=== PATIENT | male | born 1965 | race Caucasian/White ===

== ENCOUNTER → 2017-07-02 13:57 | Outpatient (CLI) | payer BC, SELFPAY ==
[2017-06-29 15:18] VITALS: BP 140/74; BMI 27.0
== END ==
PROVIDERS: Family Provider Family Medicine; PCP Family Medicine; Visit Provider Internal Medicine Cardiovascular Disease
DX: I49.3 Ventricular premature depolarization (principal)
CPT/HCPCS: 93225; 93226

== ENCOUNTER → 2017-07-16 12:45 | Outpatient (CLI) | payer BC, SELFPAY ==
[2017-06-29 15:18] VITALS: BP 140/74; BMI 27.0
--- NOTE | 2017-07-16 12:47 | ECHOD_ITS ---
Reason For Study: arrythmia Procedure This was a 2D Doppler, Color Flow transthoracic echocardiogram. The exam was of fair technical quality due to body habitus. The study was technically difficult. Exam performed in department. Left Ventricle Normal LV size. Left ventricular systolic function is normal. The estimated ejection fraction is 60 %. No evidence for diastolic dysfunction. No regional wall motion abnormalities noted. Right Ventricle Normal RV size. Normal systolic function. Atria Normal left atrium. Normal right atrium. No doppler evidence for ASD. Mitral Valve There is no mitral annular calcification. Mild diffuse mitral valve thickening. Equivocal mitral valve prolapse. Trivial mitral valve insufficiency. Tricuspid Valve Normal tricuspid valve. Trivial tricuspid valve insufficiency. Right ventricular systolic pressure estimated to be 26 mmHg. Aortic Valve Trisinus/trileaflet aortic valve. Mild diffuse aortic valve thickening. Mild focal aortic valve calcification. Trivial aortic valve insufficiency. Pulmonic Valve The pulmonic valve is not well visualized. Great Vessels Normal sized aortic root. Pericardium/Pleural No pericardial effusion. MMode/2D Measurements & Calculations LVIDd: 5.2 cm IVSd: 0.96 cm Ao root diam: 2.7 cm LVIDs: 3.2 cm LVPWd: 0.96 cm RVDd: 3.5 cm FS: 38.1 % LAV(MOD-bp): 50.1 ml LA A4 area: 16.4 cm2 RA A4 area: 13.9 cm2 LAV(MOD-bp) Indexed: 22.8 ml/m2 LAV(MOD-sp2): 52.8 ml LAV(MOD-sp4): 42.2 ml Doppler Measurements & Calculations MV E max mike: 71.6 cm/sec Lat Peak E' Mike: 7.9 cm/sec Med Peak E' Mike: 8.5 cm/sec MV A max mike: 55.0 cm/sec E/E' lat: 9.0 E/E' med: 8.5 MV E/A: 1.3 Ao V2 max: 145.3 cm/sec AI max mike: 455.0 cm/sec LV V1 max: 91.5 cm/sec Ao max P.5 mmHg AI max P.8 mmHg LV V1 max P.3 mmHg AI dec slope: 104.7 cm/sec2 AI P1/2t: 1273 msec PA V2 max: 153.2 cm/sec TR max mike: 240.1 cm/sec TR max P.1 mmHg Interpretation Summary The study was technically difficult. Left ventricular systolic function is normal. The estimated ejection fraction is 60 %. Mild diffuse mitral valve thickening. Equivocal mitral valve prolapse. Trivial mitral valve insufficiency. Trivial tricuspid valve insufficiency. Mild diffuse aortic valve thickening. Mild focal aortic valve calcification. Trivial aortic valve insufficiency. Right ventricular systolic pressure estimated to be 26 mmHg. No evidence for diastolic dysfunction. Ordering Physician: Rodney Maciel Referring Physician: Margie Ramirez M.D. Performed By: Jessika Spencer, TARSHA, RVT
== END ==
PROVIDERS: Family Provider Family Medicine; PCP Family Medicine; Visit Provider Internal Medicine Cardiovascular Disease
DX: I49.3 Ventricular premature depolarization (principal)
CPT/HCPCS: 93306

== ENCOUNTER 2019-02-04 01:54 | Inpatient (IN) | payer OTHER, SELFPAY ==
[2019-02-04] VITALS (8 sets, daily range): BP systolic 115–172; BP diastolic 76–104; PULSE 56–83; RESP 16–24; TEMP 36.6–37; O2SAT 97–100; BMI 27.0; BMI 27.1; BMI 26.4; BMI 26.5
--- NOTE | 2019-02-04 02:07 | CT_ITS ---
STUDY: CT ABDOMEN AND PELVIS WITHOUT CONTRAST REASON FOR EXAM: Male, 53 years old. Mid abdominal pain RADIATION DOSAGE (If Supplied By Facility): CTDIvol = ( 8.15 ) mGy, DLP = ( 456.23 ) mGycm TECHNIQUE: Transaxial images were obtained from the dome of the diaphragm to the symphysis pubis without oral contrast, and without intravenous contrast. Sagittal and coronal images were reconstructed. Individualized dose optimization techniques were used for this CT. COMPARISON: None. FINDINGS: Mild bibasilar dependent atelectasis. The visualized portions of the heart are within normal limits. Hypoattenuated lobulated lesion in the right lateral hepatic dome measuring near water density. Mild gallbladder distention. No pericholecystic inflammation. No biliary duct dilatation. Normal spleen. There is mild peripancreatic inflammatory stranding. Normal bilateral adrenal glands. Normal right kidney. Normal left kidney. Normal bilateral ureters. Normal visualized stomach. Normal small intestine. Normal colon. Appendix is not definitively visualized. Normal abdominal aorta. Normal inferior vena cava. Normal retroperitoneum. Normal urinary bladder. Normal abdominal wall. Normal osseous structures. CT/Abdomen/Pelvis without Cont IMPRESSION: 1. Acute pancreatitis without evidence of pseudocyst formation. 2. Complex cyst versus hemangioma within the right lateral hepatic dome. Electronically Signed: Suleiman Melendez MD at 3:22 EDT Tel , Service support ,
--- NOTE | 2019-02-04 02:07 | ED.VIS.GEN ---
History of Present Illness Chief Complaint: Abd Pain Narrative: This patient is a 53-year-old male who presents with abdominal pain. This began acutely about 30 minutes before presentation and was still present on arrival here but had actually resolved a couple of minutes later at the time of my evaluation. His pain was sharp in nature severe and located periumbilically. He denies any fevers nausea vomiting diarrhea or urinary symptoms. He is otherwise recently been well. No history of prior similar symptoms. Patient currently has a tremor but no other complaints. Past Medical History - Allergies and Home Meds Allergies/Adverse Reactions: Allergies No Known Allergies Allergy (Verified 12/31/17 15:29) Primary Care Physician: Margie Ramirez MD [Primary Care Provider] - Past Medical History: None Surgical History: no surgical history Smoking Status: Never smoker Review of Systems All systems negative except as indicated General: Denies: Fever Cardiovascular: Denies: Chest pain Respiratory: Denies: Dyspnea Gastrointestinal: Reports: Abdominal pain. Denies: Nausea, Vomiting, Diarrhea Genitourinary: Denies: Dysuria Physical Exam Vital Signs/Narrative: Vital Signs Temp Pulse Resp BP Pulse Ox 02/04/19 02:06 80 16 145/91 H 100 02/04/19 01:55 97.8 F 83 24 H 157/104 H 97 General: Well nourished, Well developed Head: Normocephalic Eyes: EOMI ENT: Moist mucous membranes Neck: Supple Cardiovascular: Regular rate, Regular rhythm Respiratory: No distress, CTA bilaterally Abdomen: Soft, Nontender, Nondistended, Hyperactive bowel sounds Skin: Normal color Neurological: Alert, - - Tremulous Psychological: - - Anxious Diagnostic/Tx/Re-eval Impressions Abdomen/Pelvis CT 02/04/19 02:07 IMPRESSION: 1. Acute pancreatitis without evidence of pseudocyst formation. 2. Complex cyst versus hemangioma within the right lateral hepatic dome. Electronically Signed: Suleiman Melendez MD at 3:22 EDT Tel , Service support , 02/04/19 02:07 Abdomen/Pelvis without Cont [CT] Stat Laboratory Results 02/04/19 02/04/19 02/04/19 01:55 01:55 02:30 WBC 10.4 RBC 4.75 Hgb 14.9 Hct 43.5 MCV 91.6 MCH 31.4 MCHC 34.3 RDW Std Deviation 44.7 H RDW Coeff of Nikolas 13.1 Plt Count 207 MPV 10.8 Immature Gran % (Auto) 0.200 Neut % (Auto) 43.3 L Lymph % (Auto) 40.7 [place] % (Auto) 11.8 H Eos % (Auto) 3.5 Baso % (Auto) 0.5 Absolute Neuts (auto) 4.5 Absolute Lymphs (auto) 4.22 Nucleated RBC % 0 Sodium 143 Potassium 3.5 Chloride 109 H Carbon Dioxide 27.0 Anion Gap 7 BUN 19 H Creatinine 1.13 Estim Creat Clear Calc 88.28 Est GFR (MDRD) Af Amer 86 Est GFR (MDRD) Non-Af 71 BUN/Creatinine Ratio 16.8 Glucose 116 H Calcium 8.3 L Total Bilirubin 0.50 AST 44 H ALT 37 Alkaline Phosphatase 53 Total Protein 7.4 Albumin 3.8 Globulin 3.6 Albumin/Globulin Ratio 1.1 Lipase 5867 H Urine Color Yellow Urine Clarity Sl. Cloudy Urine pH 6.5 Ur Specific [place] 1.015 Urine Protein Negative Urine Glucose (UA) Normal Urine Ketones Negative Urine Occult Blood Negative Urine Nitrite Negative Urine Bilirubin Negative Urine Urobilinogen Normal Ur Leukocyte Esterase Negative Urine RBC 0 SEEN Urine WBC 0 SEEN Ur Squamous Epith Cells 0-5 SEEN Urine Bacteria RARE Urine Mucus 0 SEEN - Medical Decision Making Labs notable for lipase of 5867. CT was obtained which does show findings consistent with acute pancreatitis. The etiology is unclear. He denies alcohol use. He is not on any daily medications that should cause this. There were no obvious gallstones on his CT scan. I have added on triglycerides. Although his symptoms are well controlled given the unclear cause and severity of the elevation of his lipase a do feel he should be monitored in the hospital and undergo further work-up. He will be treated with IV fluids. Patient discussed with hospitalist and admitted. ED Disposition - Plan for ED Patient: Disposition: Acute Care [facility] Diagnosis: Pancreatitis Referrals: Margie Ramirez MD [Primary Care Provider] -
[2019-02-04 02:13] LABS: Absolute Lymphocyte Count 4.22 X10^3/uL (0.83-4.51); Absolute Neutrophil Count 4.5 X10^3/uL (2.0-7.7); Basophil# 0.05 X10^3/uL; Basophil% 0.5 % (0-1); Eosinophil# 0.36 X10^3/uL; Eosinophils% 3.5 % (0-5); Hematocrit 43.5 % (40-54); Hemoglobin 14.9 g/dL (13.0-16.5); Lymphocyte # 4.22 X10^3/ul (4.0); Lymphocyte % 40.7 % (19-41); Mean Corp Hgb Conc 34.3 g/dL (32-36); Mean Corpuscular Hgb 31.4 pg (27.0-32.0); Mean Corpuscular Volume 91.6 fL (80-94); Mean Platelet Vol. 10.8 fl (6.2-12.0); Monocyte# 1.23 X10^3/uL; Monocyte% 11.8 % (0-10); NRBC Flagged by Analyzer 0 % (0-5); Neutrophil % 43.3 % (47-70); Platelet Count 207 K/mm3 (150-450); RBC Distribution Width CV 13.1 % (11.6-14.6); RBC Distribution Width SD 44.7 fl (35.1-43.9); Red Blood Count 4.75 M/mm3 (4.6-6.2); White Blood Count 10.4 K/mm3 (4.4-11.0)
[2019-02-04 02:38] LABS: ALB/GLOB Ratio 1.1 RATIO (0.9-2.4); AST(SGOT) 44 U/L (15-37); Alanine Aminotransfer ALT/SGPT 37 U/L (16-61); Albumin, Serum 3.8 g/dL (3.2-5.0); Alkaline Phosphatase 53 U/L (45-117); Anion Gap 7 (5-15); BUN 19 mg/dL (7-18); BUN/Creat Ratio 16.8 RATIO (10-20); Calcium,Total 8.3 mg/dL (8.5-10.1); Chloride 109 mmol/L (98-107); Creatinine, Serum 1.13 mg/dL (0.70-1.30); EST Glomerular Filtration Rate 71 mL/min (>60); Est Glom Filt Rate - Afr Amer 86 mL/min (>60); Estimated Creatinine Clearance 88.28 ml/min; Globulin 3.6 g/dL (2.2-4.2); Glucose 116 mg/dL (74-106); Lipase 5867 U/L (73-393); Potassium 3.5 mmol/L (3.5-5.1); Protein, Total 7.4 g/dL (6.4-8.2); Sodium Level 143 mmol/L (136-145)
[2019-02-04 02:40] LABS: Mucous, Urine 0 SEEN /hpf (<or=2+); Red Blood Cells-Urine 0 SEEN /hpf (0-5); White Blood Cells 0 SEEN /hpf (0-5)
[2019-02-04 02:41] LABS: Color, Urine Yellow (Yellow); Glucose, Dipstick Normal (Normal); Ketone-Dipstick Negative (Negative); Leukocyte Esterase-Dipstick Negative /ul (Negative); Nitrite-Dipstick Negative (Negative); Occult Blood-Urine Negative /ul (Negative); Protein-Dipstick Negative (Negative); Specific Gravity, Urine 1.015 (1.002-1.030); Urine Bilirubin Dipstick Negative (Negative); Urine Clarity Sl. Cloudy (Clear); Urine Urobilinogen Normal (Normal); Urine pH 6.5 (5.0 - 8.0)
[2019-02-04 02:49] LABS: Bacteria RARE /hpf (None Seen)
[2019-02-04 02:50] LABS: Squamous Epithelial Cells - UA 0-5 SEEN /hpf (0-5)
--- NOTE | 2019-02-04 03:26 | HP.PCM_ITS ---
Problem List (1) Acute pancreatitis Status: Acute Qualifiers: Pancreatitis type: unspecified pancreatitis type (2) Premature ventricular contractions Status: Chronic History of Present Illness Date of Admission: 02/04/19 Chief Complaint: Abdominal pain The patient is a 53 y/o M w/ PMHx: Hx PVCs/Bigeminy, Allergic Rhinitis who presents to the [facility] ED on 02/04/19 with history of onset at approximately 1:30 AM on day of ED presentation, sudden onset, cramping epigastric abdominal pain rated 7-8 out of 10 in severity with no associated nausea, emesis. The patient denies any diarrhea. The patient did note that the evening prior he did eat at at a [employer] restaurant. Work-up in the ED included T 97.8, heart rate 83, BP 157/104, respiratory rate 24, 97% on room air, CBC with WC 10.4, hemoglobin 14.9, platelet 207 without left market shift, CMP with chloride 109, BUN/creatinine 19/1.13, glucose 116, AST 44, ALT 37, lipase 5867 UA with mildly elevated specific gravity otherwise unremarkable, CT abdomen and pelvis with acute pancreatitis without any evidence of pseudocyst formation, complex cyst versus hemangioma within the right lateral hepatic dome. 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 Premature ventricular contractions (Chronic) I49.3 Palpitations (Chronic) R00.2 Allergies No Known Allergies Allergy (Verified 12/31/17 15:29) Home Medications: Ambulatory Orders Medication Instructions Recorded cetirizine 10 mg tablet 10 mg PO QDAY PRN 06/26/17 ibuprofen 200 mg tablet 200 mg PO .prn PRN tab 06/26/17 Calcium Carb,Gluc/Mag Ox,Gluc 1 ea PO DAILY 02/04/19 [Calcium Magnesium Caplet] Surgical History: no surgical history Psychiatric History: No pertinent psych hx Lives: Spouse/ Significant Other Smoking Status: Never smoker Tobacco Use: Non-smoker Alcohol: None Drugs: None - *Family History Maternal Family History: Family History (Last Reviewed 06/29/17 @ 15:19 by Mayra Zambrano) Father CAD (coronary artery disease) CVA (cerebral vascular accident) Mother Hypertension S/P CABG (coronary artery bypass graft) History Items: Heart Disease Paternal Family History: Family History (Last Reviewed 06/29/17 @ 15:19 by Mayra Zambrano) Father CAD (coronary artery disease) CVA (cerebral vascular accident) Mother Hypertension S/P CABG (coronary artery bypass graft) History Items: Heart Disease, Stroke Review of Systems Constitutional: Reports: Anorexia, Malaise, Weakness, Fatigue. Denies: Chills, Fever, Weight Change HEENT: Denies: Head Aches, Sinus Congestion, Sinus Drainage Cardiovascular: Denies: Chest Pain, Palpitations Respiratory: Denies: Cough, Shortness of breath at rest, Sputum production Gastrointestinal: Reports: Abdominal Pain. Denies: Nausea, Vomiting Genitourinary: Denies: Dysuria Musculoskeletal: Denies: Joint Pain, Joint Tenderness Skin: Denies: Rash, Wounds Neurological: Denies: Numbness, Tingling, Focal weakness Psychiatric: Denies: Anxiety, Depression, Homicidal Ideations, Suicidal Ideations Hematologic/ Lymphatic: Denies: Easy Bruising, Easy Bleeding VTE Information - Inpt Only VTE Present on Admission: No VTE Mechan Device Prophylaxis: SCD's VTE Pharm Prophylaxis ordered?: Yes Subjective: Seated upright in the ED bed, fatigued appearance, no acute distress currently, notes pain improved. Objective: Physical Examination: General: awake, alert, oriented x 3 and cooperative, seated upright in the ED bed in no apparent distress. Skin: normal color, turgor, no icterus, cyanosis. HEENT: AT/NC, EOMI, PERRLA, mildly dry MM, no carotid bruits or JVD noted. Lungs: CTA bilaterally, moderate effort, mild decrease BL bases, no rales, ronchi or wheezing. Heart: Regular rate and rhythm; no gallop, rub audible. Abdomen: soft, minimal tenderness palpation of the epigastric region with no rebound or guarding, ND, normal BS, no HSM. Extremities: no cyanosis, clubbing, or edema. Neurological: patient awake, alert, oriented x 3; cognitive function intact; pupils equally reactive to light and accomodation; cranial nerves II-XII grossly normal, moving all 4 extremities, no focal deficits, strength mildly global decrease secondary to acute presentation. Psychiatric: affect appears fatigued, no acute evidence of depressive or anxiety feelings. - Physical Exam Vital Signs Temp Pulse Resp BP Pulse Ox 97.8 F 80 16 145/91 H 100 02/04/19 01:55 02/04/19 02:06 02/04/19 02:06 02/04/19 02:06 02/04/19 02:06 Oxygen Delivery Method Room Air Weight: 217 lb 6.012 oz Body Mass Index (BMI) 27.1 Laboratory Tests Past 24 Hrs 02/04/19 02/04/19 02/04/19 01:55 01:55 02:30 WBC 10.4 RBC 4.75 Hgb 14.9 Hct 43.5 MCV 91.6 MCH 31.4 MCHC 34.3 RDW Std Deviation 44.7 H RDW Coeff of Nikolas 13.1 Plt Count 207 MPV 10.8 Immature Gran % (Auto) 0.200 Neut % (Auto) 43.3 L Lymph % (Auto) 40.7 [place] % (Auto) 11.8 H Eos % (Auto) 3.5 Baso % (Auto) 0.5 Absolute Neuts (auto) 4.5 Absolute Lymphs (auto) 4.22 Nucleated RBC % 0 Sodium 143 Potassium 3.5 Chloride 109 H Carbon Dioxide 27.0 Anion Gap 7 BUN 19 H Creatinine 1.13 Estim Creat Clear Calc 88.28 Est GFR (MDRD) Af Amer 86 Est GFR (MDRD) Non-Af 71 BUN/Creatinine Ratio 16.8 Glucose 116 H Calcium 8.3 L Total Bilirubin 0.50 AST 44 H ALT 37 Alkaline Phosphatase 53 Total Protein 7.4 Albumin 3.8 Globulin 3.6 Albumin/Globulin Ratio 1.1 Lipase 5867 H Urine Color Yellow Urine Clarity Sl. Cloudy Urine pH 6.5 Ur Specific [place] 1.015 Urine Protein Negative Urine Glucose (UA) Normal Urine Ketones Negative Urine Occult Blood Negative Urine Nitrite Negative Urine Bilirubin Negative Urine Urobilinogen Normal Ur Leukocyte Esterase Negative Urine RBC 0 SEEN Urine WBC 0 SEEN Ur Squamous Epith Cells 0-5 SEEN Urine Bacteria RARE Urine Mucus 0 SEEN Assessment/Plan All Active Problems (Last Reviewed 06/29/17 @ 15:19 by Mayra Zambrano) Pancreatitis (Acute) Acute pancreatitis (Acute) The patient is a 53 y/o M w/ PMHx: Hx PVCs/Bigeminy, Allergic Rhinitis who presents to the [facility] ED on 02/04/19 with history of onset at approximately 1:30 AM on day of ED presentation, sudden onset, cramping epigastric abdominal pain rated 7-8 out of 10 in severity with no associated nausea, emesis. 1. Acute pancreatitis w/ abdominal pain, N/V: Work-up in the ED included T 97.8, heart rate 83, BP 157/104, respiratory rate 24, 97% on room air, CBC with WC 10.4, hemoglobin 14.9, platelet 207 without left market shift, CMP with chloride 109, BUN/creatinine 19/1.13, glucose 116, AST 44, ALT 37, lipase 5867 UA with mildly elevated specific gravity otherwise unremarkable, CT abdomen and pelvis with acute pancreatitis without any evidence of pseudocyst formation, complex cyst versus hemangioma within the right lateral hepatic dome. Will admit to [facility], maintain on IVFs, NPO, IV Famotidine, IV/po pain control, trend lipase, CMP. Will obtain RUQ US, FLP, further assess for EtOH consumption risk as etiology for pancreatitis although denies. 2. History of Underlying Ventricular Ectopy: Patient with history of PVCs noted on Holter monitor comparable to prior PVC burden, echocardiogram unremarkable with EF 60%, following w/ Dr. Maciel. 3. Allergic rhinitis: Continue home cetirizine regimen. 4. DVT Prophylaxis: SCDs, lovenox. Code Visit Inpatient E&M: 06381 Init Hosp L3
[2019-02-04] MEDS: 0.9% Normal Saline 1,000 ML 999 ML IV ×3 (03:41→05:46)
[2019-02-04 03:45] LABS: Triglycerides 89 mg/dL
--- NOTE | 2019-02-04 04:00 | US_ITS ---
STUDY: ABDOMINAL ULTRASOUND - RIGHT UPPER QUADRANT REASON FOR VISIT: Male, 53 years old. History of pancreatitis. TECHNIQUE: Ultrasound evaluation of the right upper quadrant was performed with real-time and static perez-scale imaging. TECHNICAL QUALITY: Adequate. COMPARISON: Comparison is made with prior CT scan of the abdomen done earlier in the day. FINDINGS: Liver: The liver measures 14.7 cm. There is normal echogenicity of the liver. The bile ducts are within normal limits. There is hepatic color flow. The direction of portal flow is hepatopetal. There is a 4 cm x 4.1 cm x 4.5 cm cyst in the right lobe of the liver. Gallbladder: Normal distended gallbladder. The gallbladder wall is thickened and measures 5 mm. There is a negative sonographic Garcia's sign. There is no pericholecystic fluid. There are no gallstones. A small amount of gallbladder sludge is seen. Common Bile Duct (C.B.D.): The common bile duct measures 6.0 mm. Pancreas: Normal size of the head, body and tail of the pancreas. There is increased echogenicity of the pancreas. There is no demonstrated pancreatic mass or cyst. Right Kidney: Normal size of the right kidney. The right kidney measures 10.4 cm x 5.1 cm x 6.3 cm. Normal renal cortex. The right cortex measures 1.6 cm. There is no demonstrated renal mass or cyst. There is no right hydronephrosis. US/Gallbladder IMPRESSION: 4 cm x 4.1 cm x 4.5 cm cyst in the right lobe of the liver. Mildly thickened gallbladder wall with sludge within the gallbladder lumen. Electronically Signed: Geovany Power, at 10:57 EDT , Service support ,
[2019-02-04] MEDS: Ketorolac 30 MG/ML Syringe IV ×3 (04:49→21:07)
[2019-02-04] MEDS: 0.9% NaCl Peripheral Flush Adult/Peds IV ×3 (04:50→21:07)
[2019-02-04] MEDS: Enoxaparin 40 MG/0.4 ML Syringe SC (05:12)
[2019-02-04 05:53] LABS: Absolute Lymphocyte Count 0.97 X10^3/uL (0.83-4.51); Basophil# 0.03 X10^3/uL; Basophil% 0.3 % (0-1); Eosinophil# 0.03 X10^3/uL; Eosinophils% 0.3 % (0-5); Hematocrit 39.5 % (40-54); Hemoglobin 13.4 g/dL (13.0-16.5); Lymphocyte # 0.97 X10^3/ul (4.0); Lymphocyte % 8.9 % (19-41); Mean Corp Hgb Conc 33.9 g/dL (32-36); Mean Corpuscular Hgb 30.7 pg (27.0-32.0); Mean Corpuscular Volume 90.6 fL (80-94); Mean Platelet Vol. 10.7 fl (6.2-12.0); Monocyte# 0.83 X10^3/uL; Monocyte% 7.6 % (0-10); NRBC Flagged by Analyzer 0 % (0-5); Neutrophil # 9.01 X10^3/uL (2.7-7.7); Neutrophil % 82.5 % (47-70); Platelet Count 175 K/mm3 (150-450); RBC Distribution Width CV 13.1 % (11.6-14.6); RBC Distribution Width SD 43.2 fl (35.1-43.9); Red Blood Count 4.36 M/mm3 (4.6-6.2); White Blood Count 10.9 K/mm3 (4.4-11.0)
[2019-02-04 06:41] LABS: ALB/GLOB Ratio 1.1 RATIO (0.9-2.4); AST(SGOT) 52 U/L (15-37); Alanine Aminotransfer ALT/SGPT 45 U/L (16-61); Albumin, Serum 3.4 g/dL (3.2-5.0); Alkaline Phosphatase 50 U/L (45-117); Anion Gap 5 (5-15); BUN 16 mg/dL (7-18); BUN/Creat Ratio 17.2 RATIO (10-20); Calcium,Total 7.8 mg/dL (8.5-10.1); Chloride 113 mmol/L (98-107); Cholesterol 139 mg/dL (200); Creatinine, Serum 0.93 mg/dL (0.70-1.30); EST Glomerular Filtration Rate 90 mL/min (>60); Est Glom Filt Rate - Afr Amer 108 mL/min (>60); Estimated Creatinine Clearance 107.27 ml/min; Globulin 3.2 g/dL (2.2-4.2); Glucose 105 mg/dL (74-106); High Density Lipoprotein 38 mg/dL; Lipase 5186 U/L (73-393); Potassium 3.8 mmol/L (3.5-5.1); Protein, Total 6.6 g/dL (6.4-8.2); Sodium Level 145 mmol/L (136-145); Triglycerides 59 mg/dL; Very Low Density Lipoprotein 12 mg/dL (5-40)
[2019-02-04] MEDS: 0.9% Normal Saline 1,000 ML 150 ML IV ×3 (06:48→21:12)
--- NOTE | 2019-02-04 10:52 | CASEMGMT ---
Copies of LW/POA forms in paper chart, Selina Cruz is listed as pt's POA. GHAZALA Jose
--- NOTE | 2019-02-04 10:57 | CASEMGMT ---
RN CM Assessment Presentation: Pancreatitis Intro role of CM and purpose of RN CM assessment to patient and his significant other, Clementina. Demographics, PCP and Pharmacy verified. pt states he is very independent, plans to return home and no care needs identified. PCP: Dr. Margie Fung Preferred Pharmacy: [facility], [facility] Insurance: [employer] Prescription Benefit: yes LNOK: Significant other, Clementina Cruz Living Arrangements: Lives independently with S.O. Transportation: drives DME: none HHC: none Patient DC goals: Home DC PLAN: Home on discharge. Zeynep NÚÑEZN RN ACM
--- NOTE | 2019-02-04 11:08 | PN_ITS ---
<Mary Coyle - Last Filed: 02/04/19 11:19> Patient Problems: Active and Suspected Problems (Last Reviewed 06/29/17 @ 15:19 by Mayra Zambrano) Pancreatitis (Acute) Subjective: Patient seen and examined. Denies further abdominal pain. No pain with deep palpation. Denies nausea, vomiting. - Physical Exam General: Alert, Oriented x3, Cooperative HEENT: Atraumatic, PERRLA, EOMI, Normocephalic Neck: Supple, No JVD, Negative Carotid Bruits Lungs: Clear to auscultation, Normal air movement Cardiovascular: Regular rate, Regular Rhythm, Normal S1, Normal S2, No murmurs Abdomen: Bowel Sounds Present, Soft, Non Tender, Non-Distended Extremities: No clubbing, No cyanosis, No edema, Capillary Refill Less than 3 Seconds Skin: No rashes, No breakdown Musculoskeletal: No Tenderness to Palpation of Joints or Extremities Neurological: Cranial nerves II-XII grossly intact, Neuro grossly intact Psych/Mental Status: Normal Affect, Appropriate Vital Signs Temp Pulse Resp BP Pulse Ox 98.2 F 60 16 138/83 H 99 02/04/19 10:15 02/04/19 10:15 02/04/19 10:15 02/04/19 10:15 02/04/19 10:15 Oxygen Delivery Method Room Air Weight: 211 lb 13.828 oz Body Mass Index (BMI) 26.4 Intake and Output for Last 24 Hours 02/02/19 02/03/19 02/04/19 23:59 23:59 23:59 Intake Total 2919.1 / 2919.1 Output Total 1200 / 1200 Balance 1719.1 / 1719.1 Laboratory Tests Past 24 Hrs 02/04/19 02/04/19 02/04/19 01:55 01:55 01:55 WBC 10.4 RBC 4.75 Hgb 14.9 Hct 43.5 MCV 91.6 MCH 31.4 MCHC 34.3 RDW Std Deviation 44.7 H RDW Coeff of Nikolas 13.1 Plt Count 207 MPV 10.8 Immature Gran % (Auto) 0.200 Neut % (Auto) 43.3 L Lymph % (Auto) 40.7 [place] % (Auto) 11.8 H Eos % (Auto) 3.5 Baso % (Auto) 0.5 Absolute Neuts (auto) 4.5 Absolute Lymphs (auto) 4.22 Nucleated RBC % 0 Sodium 143 Potassium 3.5 Chloride 109 H Carbon Dioxide 27.0 Anion Gap 7 BUN 19 H Creatinine 1.13 Estim Creat Clear Calc 88.28 Est GFR (MDRD) Af Amer 86 Est GFR (MDRD) Non-Af 71 BUN/Creatinine Ratio 16.8 Glucose 116 H Calcium 8.3 L Total Bilirubin 0.50 AST 44 H ALT 37 Alkaline Phosphatase 53 Total Protein 7.4 Albumin 3.8 Globulin 3.6 Albumin/Globulin Ratio 1.1 Triglycerides 89 Cholesterol LDL Cholesterol VLDL Cholesterol HDL Cholesterol Lipase 5867 H Urine Color Urine Clarity Urine pH Ur Specific [place] Urine Protein Urine Glucose (UA) Urine Ketones Urine Occult Blood Urine Nitrite Urine Bilirubin Urine Urobilinogen Ur Leukocyte Esterase Urine RBC Urine WBC Ur Squamous Epith Cells Urine Bacteria Urine Mucus 02/04/19 02/04/19 02/04/19 02:30 05:30 05:30 WBC 10.9 RBC 4.36 L Hgb 13.4 Hct 39.5 L MCV 90.6 MCH 30.7 MCHC 33.9 RDW Std Deviation 43.2 RDW Coeff of Nikolas 13.1 Plt Count 175 MPV 10.7 Immature Gran % (Auto) 0.400 Neut % (Auto) 82.5 H Lymph % (Auto) 8.9 L [place] % (Auto) 7.6 Eos % (Auto) 0.3 Baso % (Auto) 0.3 Absolute Neuts (auto) 9.0 H Absolute Lymphs (auto) 0.97 Nucleated RBC % 0 Sodium 145 Potassium 3.8 Chloride 113 H Carbon Dioxide 27.0 Anion Gap 5 BUN 16 Creatinine 0.93 Estim Creat Clear Calc 107.27 Est GFR (MDRD) Af Amer 108 Est GFR (MDRD) Non-Af 90 BUN/Creatinine Ratio 17.2 Glucose 105 Calcium 7.8 L Total Bilirubin 0.40 AST 52 H ALT 45 Alkaline Phosphatase 50 Total Protein 6.6 Albumin 3.4 Globulin 3.2 Albumin/Globulin Ratio 1.1 Triglycerides 59 Cholesterol 139 LDL Cholesterol 89 VLDL Cholesterol 12 HDL Cholesterol 38 L Lipase 5186 H Urine Color Yellow Urine Clarity Sl. Cloudy Urine pH 6.5 Ur Specific [place] 1.015 Urine Protein Negative Urine Glucose (UA) Normal Urine Ketones Negative Urine Occult Blood Negative Urine Nitrite Negative Urine Bilirubin Negative Urine Urobilinogen Normal Ur Leukocyte Esterase Negative Urine RBC 0 SEEN Urine WBC 0 SEEN Ur Squamous Epith Cells 0-5 SEEN Urine Bacteria RARE Urine Mucus 0 SEEN Medical Necessity - Tobacco Use Smoking Status: Never smoker Tobacco Use: Non-smoker Assessment/Plan All Active Problems (Last Reviewed 06/29/17 @ 15:19 by Mayra Zambrano) Pancreatitis (Acute) Acute pancreatitis (Acute) 1. Acute pancreatitis-CT of abdomen and pelvis on admission shows acute pancreatitis without evidence of pseudocyst formation. Complex cyst versus hemangioma right lateral hepatic dome. Gallbladder ultrasound shows mildly thickened gallbladder wall with sludge within the gallbladder lumen. Lipase 5,867 on admission. Denies further abdominal pain, nausea or vomiting. Denies alcohol use. No new medications. Consult general surgery given gallbladder ultrasound findings. Remain n.p.o. IV fluids. IV famotidine. 2. History of ventricular ectopy-follows with Dr. Maciel. Echo June 2017 with EF 60%. 3. Allergic rhinitis-continue home cetirizine regimen. DVT prophylaxis-Lovenox subcu This patient was seen by ANGELIC Zamora under the supervision of Dr. Max. <Jen Max - Last Filed: 02/04/19 12:22> - Physical Exam Vital Signs Temp Pulse Resp BP Pulse Ox 98.2 F 60 16 138/83 H 99 02/04/19 10:15 02/04/19 10:15 02/04/19 10:15 02/04/19 10:15 02/04/19 10:15 Oxygen Delivery Method Room Air Weight: 211 lb 13.828 oz Body Mass Index (BMI) 26.4 Intake and Output for Last 24 Hours 02/02/19 02/03/19 02/04/19 23:59 23:59 23:59 Intake Total 2919.1 / 2919.1 Output Total 1200 / 1200 Balance 1719.1 / 1719.1 Laboratory Tests Past 24 Hrs 02/04/19 02/04/19 02/04/19 01:55 01:55 01:55 WBC 10.4 RBC 4.75 Hgb 14.9 Hct 43.5 MCV 91.6 MCH 31.4 MCHC 34.3 RDW Std Deviation 44.7 H RDW Coeff of Nikolas 13.1 Plt Count 207 MPV 10.8 Immature Gran % (Auto) 0.200 Neut % (Auto) 43.3 L Lymph % (Auto) 40.7 [place] % (Auto) 11.8 H Eos % (Auto) 3.5 Baso % (Auto) 0.5 Absolute Neuts (auto) 4.5 Absolute Lymphs (auto) 4.22 Nucleated RBC % 0 Sodium 143 Potassium 3.5 Chloride 109 H Carbon Dioxide 27.0 Anion Gap 7 BUN 19 H Creatinine 1.13 Estim Creat Clear Calc 88.28 Est GFR (MDRD) Af Amer 86 Est GFR (MDRD) Non-Af 71 BUN/Creatinine Ratio 16.8 Glucose 116 H Calcium 8.3 L Total Bilirubin 0.50 AST 44 H ALT 37 Alkaline Phosphatase 53 Total Protein 7.4 Albumin 3.8 Globulin 3.6 Albumin/Globulin Ratio 1.1 Triglycerides 89 Cholesterol LDL Cholesterol VLDL Cholesterol HDL Cholesterol Lipase 5867 H Urine Color Urine Clarity Urine pH Ur Specific [place] Urine Protein Urine Glucose (UA) Urine Ketones Urine Occult Blood Urine Nitrite Urine Bilirubin Urine Urobilinogen Ur Leukocyte Esterase Urine RBC Urine WBC Ur Squamous Epith Cells Urine Bacteria Urine Mucus 02/04/19 02/04/19 02/04/19 02:30 05:30 05:30 WBC 10.9 RBC 4.36 L Hgb 13.4 Hct 39.5 L MCV 90.6 MCH 30.7 MCHC 33.9 RDW Std Deviation 43.2 RDW Coeff of Nikolas 13.1 Plt Count 175 MPV 10.7 Immature Gran % (Auto) 0.400 Neut % (Auto) 82.5 H Lymph % (Auto) 8.9 L [place] % (Auto) 7.6 Eos % (Auto) 0.3 Baso % (Auto) 0.3 Absolute Neuts (auto) 9.0 H Absolute Lymphs (auto) 0.97 Nucleated RBC % 0 Sodium 145 Potassium 3.8 Chloride 113 H Carbon Dioxide 27.0 Anion Gap 5 BUN 16 Creatinine 0.93 Estim Creat Clear Calc 107.27 Est GFR (MDRD) Af Amer 108 Est GFR (MDRD) Non-Af 90 BUN/Creatinine Ratio 17.2 Glucose 105 Calcium 7.8 L Total Bilirubin 0.40 AST 52 H ALT 45 Alkaline Phosphatase 50 Total Protein 6.6 Albumin 3.4 Globulin 3.2 Albumin/Globulin Ratio 1.1 Triglycerides 59 Cholesterol 139 LDL Cholesterol 89 VLDL Cholesterol 12 HDL Cholesterol 38 L Lipase 5186 H Urine Color Yellow Urine Clarity Sl. Cloudy Urine pH 6.5 Ur Specific [place] 1.015 Urine Protein Negative Urine Glucose (UA) Normal Urine Ketones Negative Urine Occult Blood Negative Urine Nitrite Negative Urine Bilirubin Negative Urine Urobilinogen Normal Ur Leukocyte Esterase Negative Urine RBC 0 SEEN Urine WBC 0 SEEN Ur Squamous Epith Cells 0-5 SEEN Urine Bacteria RARE Urine Mucus 0 SEEN Assessment/Plan Patient seen by Mary ATWOOD under my supervision. Patient was admitted with a complaint of sudden onset of abdominal pain in the early hours of 02/04/2019. He denied any alcohol intake and denied any assisted nausea or vomiting. Lipase was [address] abdomen and pelvis done showed acute pancreatitis with no evidence of pseudocyst formation and complex cyst versus hemangioma within the right lateral hepatic dome. Patient has been managed for acute pancreatitis and is currently n.p.o. Patient seen and examined. Abdominal pain is resolved and he has no other complaints. Review of systems otherwise negative. Labs and vitals reviewed. Lipase has trended down slightly to 5186. o/e: Vital Signs Height 6 ft 3 in Weight: 211 lb 13.828 oz Weight in Pounds 211.9 lbs Pulse Ox 99 Temperature 98.2 F Pulse Rate 60 Respiratory Rate 16 Blood Pressure 138/83 Blood Pressure Position Semi-Fowlers General: Alert, Oriented x3, Cooperative HEENT: Atraumatic, PERRLA, EOMI, Normocephalic Neck: Supple, No JVD, Negative Carotid Bruits Lungs: Clear to auscultation, Normal air movement Cardiovascular: Regular rate, Regular Rhythm, Normal S1, Normal S2, No murmurs Abdomen: Bowel Sounds Present, Soft, Non Tender, Non-Distended Extremities: No clubbing, No cyanosis, No edema, Capillary Refill Less than 3 Seconds Skin: No rashes, No breakdown Musculoskeletal: No Tenderness to Palpation of Joints or Extremities Neurological: Cranial nerves II-XII grossly intact, Neuro grossly intact Psych/Mental Status: Normal Affect, Appropriate Plan is to continue hydrating with IVF. RUQ USG showed mildly thickened gallbladder wall with sludge within the gallbladder lumen. No gallstones were visualized and there was negative sonographic Garcia sign. Decision made to consult general surgery. Continue hydration with fluid continue pain meds. Rest of management as per ANGELIC Zamora's notes which I reviewed and endorsed. Code Visit Inpatient E&M: 72018 Subs Hosp L2
--- NOTE | 2019-02-04 15:03 | PCM.CONS.GEN ---
Problem List (1) Pancreatitis Status: Acute Qualifiers: Chronicity: acute Pancreatitis type: biliary Acute pancreatitis complication: no infection or necrosis Qualified Code(s): K85.10 - Biliary acute pancreatitis without necrosis or infection Reason for Consult Date of Consultation: 02/04/19 History of Present Illness: This patient is a 53-year-old male who presents with abdominal pain. This began acutely about 30 minutes before presentation and was still present on arrival here but had actually resolved a couple of minutes later at the time of my evaluation. His pain was sharp in nature severe and located periumbilically. He denies any fevers nausea vomiting diarrhea or urinary symptoms. He is otherwise recently been well. No history of prior similar symptoms. Patient currently has a tremor but no other complaints. His pain is significantly stopped. He is hungry. Past Medical History Past Medical History (Chronic Problems): Chronic Problems (Last Reviewed 06/29/17 @ 15:19 by Mayra Zambrano) Bigeminy (Chronic) Premature ventricular contractions (Chronic) Palpitations (Chronic) Medical History: Medical History (Last Reviewed 02/04/19 @ 15:04 by Jean-Claude Ware MD) Bigeminy (Chronic) I49.9 Premature ventricular contractions (Chronic) I49.3 Palpitations (Chronic) R00.2 Allergies No Known Allergies Allergy (Verified 12/31/17 15:29) Home Medications: Ambulatory Orders Medication Instructions Recorded cetirizine 10 mg tablet 10 mg PO PRN PRN 06/26/17 Acetaminophen [Tylenol Extra 1,000 mg PO Q6H PRN PRN 02/04/19 Strength] Calcium Carb,Gluc/Mag Ox,Gluc 3 ea PO DAILY 02/04/19 [Calcium Magnesium Caplet] DiphenhydrAMINE [Benadryl] 25 mg PO PRN PRN 02/04/19 Surgical History: no surgical history Psychiatric History: No pertinent psych hx Lives: Spouse/ Significant Other Smoking Status: Never smoker Tobacco Use: Non-smoker Alcohol: None Drugs: None - *Family History Maternal Family History: Family History (Last Reviewed 02/04/19 @ 15:04 by Jean-Claude Ware MD) Father CAD (coronary artery disease) CVA (cerebral vascular accident) Mother Hypertension S/P CABG (coronary artery bypass graft) History Items: Heart Disease Paternal Family History: Family History (Last Reviewed 02/04/19 @ 15:04 by Jean-Claude Ware MD) Father CAD (coronary artery disease) CVA (cerebral vascular accident) Mother Hypertension S/P CABG (coronary artery bypass graft) History Items: Heart Disease, Stroke Review of Systems Constitutional: Denies: Chills, Fever, Weight Change Cardiovascular: Denies: Chest Pain, Chest Pressure, Chest Tightness, Palpitations Respiratory: Denies: Cough, Hemoptysis, Shortness of breath at rest, Shortness of breath upon exertion, Wheezing Gastrointestinal: Denies: Abdominal Pain, Constipation, Diarrhea, Hematemesis, Nausea, Melena, Vomiting Patient Problems: Active and Suspected Problems (Last Reviewed 06/29/17 @ 15:19 by Mayra Zambrano) Pancreatitis (Acute) - Physical Exam General: Alert, Oriented x3 Lungs: Clear to auscultation Cardiovascular: Regular rate, Regular Rhythm, No murmurs Abdomen: Bowel Sounds Present, Soft, Non Tender, Non-Distended Vital Signs Temp Pulse Resp BP Pulse Ox 98.2 F 60 16 138/83 H 99 02/04/19 10:15 02/04/19 10:15 02/04/19 10:15 02/04/19 10:15 02/04/19 10:15 Oxygen Delivery Method Room Air Weight: 211 lb 13.828 oz Body Mass Index (BMI) 26.4 Intake and Output for Last 24 Hours 02/02/19 02/03/19 02/04/19 23:59 23:59 23:59 Intake Total 3919.1 / 3919.1 Output Total 3250 / 3250 Balance 669.1 / 669.1 Laboratory Tests Past 24 Hrs 02/04/19 02/04/19 02/04/19 01:55 01:55 01:55 WBC 10.4 RBC 4.75 Hgb 14.9 Hct 43.5 MCV 91.6 MCH 31.4 MCHC 34.3 RDW Std Deviation 44.7 H RDW Coeff of Nikolas 13.1 Plt Count 207 MPV 10.8 Immature Gran % (Auto) 0.200 Neut % (Auto) 43.3 L Lymph % (Auto) 40.7 [place] % (Auto) 11.8 H Eos % (Auto) 3.5 Baso % (Auto) 0.5 Absolute Neuts (auto) 4.5 Absolute Lymphs (auto) 4.22 Nucleated RBC % 0 Sodium 143 Potassium 3.5 Chloride 109 H Carbon Dioxide 27.0 Anion Gap 7 BUN 19 H Creatinine 1.13 Estim Creat Clear Calc 88.28 Est GFR (MDRD) Af Amer 86 Est GFR (MDRD) Non-Af 71 BUN/Creatinine Ratio 16.8 Glucose 116 H Calcium 8.3 L Total Bilirubin 0.50 AST 44 H ALT 37 Alkaline Phosphatase 53 Total Protein 7.4 Albumin 3.8 Globulin 3.6 Albumin/Globulin Ratio 1.1 Triglycerides 89 Cholesterol LDL Cholesterol VLDL Cholesterol HDL Cholesterol Lipase 5867 H Urine Color Urine Clarity Urine pH Ur Specific [place] Urine Protein Urine Glucose (UA) Urine Ketones Urine Occult Blood Urine Nitrite Urine Bilirubin Urine Urobilinogen Ur Leukocyte Esterase Urine RBC Urine WBC Ur Squamous Epith Cells Urine Bacteria Urine Mucus 02/04/19 02/04/19 02/04/19 02:30 05:30 05:30 WBC 10.9 RBC 4.36 L Hgb 13.4 Hct 39.5 L MCV 90.6 MCH 30.7 MCHC 33.9 RDW Std Deviation 43.2 RDW Coeff of Nikolas 13.1 Plt Count 175 MPV 10.7 Immature Gran % (Auto) 0.400 Neut % (Auto) 82.5 H Lymph % (Auto) 8.9 L [place] % (Auto) 7.6 Eos % (Auto) 0.3 Baso % (Auto) 0.3 Absolute Neuts (auto) 9.0 H Absolute Lymphs (auto) 0.97 Nucleated RBC % 0 Sodium 145 Potassium 3.8 Chloride 113 H Carbon Dioxide 27.0 Anion Gap 5 BUN 16 Creatinine 0.93 Estim Creat Clear Calc 107.27 Est GFR (MDRD) Af Amer 108 Est GFR (MDRD) Non-Af 90 BUN/Creatinine Ratio 17.2 Glucose 105 Calcium 7.8 L Total Bilirubin 0.40 AST 52 H ALT 45 Alkaline Phosphatase 50 Total Protein 6.6 Albumin 3.4 Globulin 3.2 Albumin/Globulin Ratio 1.1 Triglycerides 59 Cholesterol 139 LDL Cholesterol 89 VLDL Cholesterol 12 HDL Cholesterol 38 L Lipase 5186 H Urine Color Yellow Urine Clarity Sl. Cloudy Urine pH 6.5 Ur Specific [place] 1.015 Urine Protein Negative Urine Glucose (UA) Normal Urine Ketones Negative Urine Occult Blood Negative Urine Nitrite Negative Urine Bilirubin Negative Urine Urobilinogen Normal Ur Leukocyte Esterase Negative Urine RBC 0 SEEN Urine WBC 0 SEEN Ur Squamous Epith Cells 0-5 SEEN Urine Bacteria RARE Urine Mucus 0 SEEN Assessment/Plan All Active Problems (Last Reviewed 06/29/17 @ 15:19 by Mayra Zambrano) Pancreatitis (Acute) Acute pancreatitis (Acute) At this point I think it is appropriate for him to try some clear liquids if he tolerates this and he can be discharged home and follow-up with me on Thursday. I have instructed him that his pancreatitis is more likely cause from the sludge it was in his gallbladder and until he gets this resolved he is still at risk for another episode. In addition I offered him a chance to have his gallbladder removed this weekend he was more interested in leaving than doing this.
[2019-02-05 02:00] VITALS: BP 135/75; PULSE 65; RESP 18; TEMP 36.4; O2SAT 98
[2019-02-05] MEDS: 0.9% Normal Saline 1,000 ML 150 ML IV (04:38)
[2019-02-05] MEDS: Enoxaparin 40 MG/0.4 ML Syringe SC (05:46)
[2019-02-05 08:17] LABS: Lipase 1104 U/L (73-393)
--- NOTE | 2019-02-05 08:57 | PCM.PN.SRG ---
Patient Problems: Active and Suspected Problems (Last Reviewed 02/04/19 @ 15:04 by Jean-Claude Ware MD) Pancreatitis (Acute) Subjective: Patient not complaining of any abdominal pain. Having bowel movements. Objective: Abdomen is soft and nontender - Physical Exam Vital Signs Temp Pulse Resp BP Pulse Ox 97.5 F L 65 18 135/75 H 98 02/05/19 02:00 02/05/19 02:00 02/05/19 02:00 02/05/19 02:00 02/05/19 02:00 Oxygen Delivery Method Room Air Weight: 211 lb 13.828 oz Body Mass Index (BMI) 26.4 Intake and Output for Last 24 Hours 02/03/19 02/04/19 02/05/19 23:59 23:59 23:59 Intake Total 4836.6 / 5036.6 1210 / 1210 Output Total 4150 / 4950 800 / 800 Balance 686.6 / 86.6 410 / 410 Laboratory Tests Past 24 Hrs 02/05/19 07:00 Lipase 1104 H Medical Necessity - Tobacco Use Smoking Status: Never smoker Tobacco Use: Non-smoker Assessment/Plan All Active Problems (Last Reviewed 02/04/19 @ 15:04 by Jean-Claude Ware MD) Pancreatitis (Acute) Acute pancreatitis (Acute) Okay to discharge the patient home. I will follow-up with him on Thursday or Thursday of this coming week. I have instructed him that he will need to undergo a laparoscopic cholecystectomy.
--- NOTE | 2019-02-05 09:01 | DCINST_ITS ---
- Discharge Diagnoses Current Active Problems: Current Active and Chronic Problems (Last Reviewed 02/04/19 @ 15:04 by Jean-Claude Ware MD) Pancreatitis (Acute) You will use the following diet at home:: Full liquid Discharge Activity: Return to Normal Activity Call your doctor if you observe: Uncontrolled pain, - - Nausea, vomiting. Allergies/Adverse Reactions: Allergies No Known Allergies Allergy (Verified 12/31/17 15:29) Medications to take at Discharge cetirizine 10 mg tablet 10 mg PO PRN PRN 06/26/17 Acetaminophen [Tylenol] 1,000 mg PO Q6H PRN PRN 02/04/19 Calcium Carb,Gluc/Mag Ox,Gluc [Calcium Magnesium Caplet] 3 ea PO DAILY 02/04/19 DiphenhydrAMINE [Benadryl] 25 mg PO PRN PRN 02/04/19 Primary Care Physician: Margie Ramirez MD [Primary Care Provider] - Please follow up with your Primary Care Physician in: 1 Week Test Results: Test results from this visit will be discussed in further detail at your follow- up appointment, if applicable. Please Follow Up With: Jean-Claude Ware MD When: Call thursday for appt Proposed Discharge Date: 02/05/19
--- NOTE | 2019-02-05 09:03 | DS.PCM_ITS ---
<Mary Coyle - Last Filed: 02/05/19 09:09> Discharge Date and Diagnosis Date of Admission: 02/04/19 Date of Discharge: 02/05/19 - Primary Discharge Diagnosis Active and Suspected Problems (Last Reviewed 02/04/19 @ 15:04 by Jean-Claude Ware MD) 1. Acute biliary pancreatitis 2. History of ventricular ectopy 3. Allergic rhinitis - Secondary Discharge Diagnosis Chronic Problems (Last Reviewed 02/04/19 @ 15:04 by Jean-Claude Ware MD) Bigeminy (Chronic) Premature ventricular contractions (Chronic) Palpitations (Chronic) Hospital Course and Treatment Imaging Results: Diagnostic Data Abdomen/Pelvis CT 02/04/19 02:07 IMPRESSION: 1. Acute pancreatitis without evidence of pseudocyst formation. 2. Complex cyst versus hemangioma within the right lateral hepatic dome. Electronically Signed: Suleiman Melendez MD at 3:22 EDT Tel , Service support , Gallbladder Ultrasound 02/04/19 04:00 IMPRESSION: 4 cm x 4.1 cm x 4.5 cm cyst in the right lobe of the liver. Mildly thickened gallbladder wall with sludge within the gallbladder lumen. Electronically Signed: Geovany Power, at 10:57 EDT , Service support , Dr. Ware- General Surgery Operations: None Procedures: None Summary of Care Provided: The patient is a 53 year old M admitted 02/04/2019 due to abdominal pain. 1. Acute biliary pancreatitis-CT of abdomen and pelvis on admission shows acute pancreatitis without evidence of pseudocyst formation. Complex cyst versus hemangioma right lateral hepatic dome. Gallbladder ultrasound shows mildly thickened gallbladder wall with sludge within the gallbladder lumen. Lipase 5,867 on admission, down to 1100 at discharge. Denies further abdominal pain, nausea or vomiting. Tolerating full liquid diet. General surgery consulted. Patient opted to go home and have laparoscopic cholecystectomy as outpatient. He will call Dr. Ware office on Thursday to schedule. Instructed on full liquid diet at discharge until outpatient surgery. Follow-up with PCP in 1 week. 2. History of ventricular ectopy-follows with Dr. Maciel. Echo June 2017 with EF 60%. 3. Allergic rhinitis-continue home cetirizine regimen. General: Alert, Oriented x3, Cooperative HEENT: Atraumatic, PERRLA, EOMI, Normocephalic Neck: Supple, No JVD, Negative Carotid Bruits Lungs: Clear to auscultation, Normal air movement Cardiovascular: Regular rate, Regular Rhythm, Normal S1, Normal S2, No murmurs Abdomen: Bowel Sounds Present, Soft, Non Tender, Non-Distended Extremities: No clubbing, No cyanosis, No edema, Capillary Refill Less than 3 Seconds Skin: No rashes, No breakdown Musculoskeletal: No Tenderness to Palpation of Joints or Extremities Neurological: Cranial nerves II-XII grossly intact, Neuro grossly intact Psych/Mental Status: Normal Affect, Appropriate Patient seen and examined prior to discharge. Physical assessment as noted above. Patient is stable for discharge with follow up recommendations as noted above. This patient was seen by ANGELIC Zamora under the supervision of Dr. Max. - Physical Exam Vital Signs Temp Pulse Resp BP Pulse Ox 97.5 F L 65 18 135/75 H 98 02/05/19 02:00 02/05/19 02:00 02/05/19 02:00 02/05/19 02:00 02/05/19 02:00 Oxygen Delivery Method Room Air Weight: 211 lb 13.828 oz Body Mass Index (BMI) 26.4 Intake and Output for Last 24 Hours 02/03/19 02/04/19 02/05/19 23:59 23:59 23:59 Intake Total 4836.6 / 5036.6 1210 / 1210 Output Total 4150 / 4950 800 / 800 Balance 686.6 / 86.6 410 / 410 Laboratory Tests Past 24 Hrs 02/05/19 07:00 Lipase 1104 H Discharge Diet: - - Full liquid Discharge Activity: Return to Normal Activity Call your doctor if you observe: Uncontrolled pain, - - Nausea, vomiting. Home Medications: Medications to take at Discharge cetirizine 10 mg tablet 10 mg PO PRN PRN 06/26/17 Acetaminophen [Tylenol] 1,000 mg PO Q6H PRN PRN 02/04/19 Calcium Carb,Gluc/Mag Ox,Gluc [Calcium Magnesium Caplet] 3 ea PO DAILY 02/04/19 DiphenhydrAMINE [Benadryl] 25 mg PO PRN PRN 02/04/19 Primary Care Physician: Margie Ramirez MD [Primary Care Provider] - Please follow up with your Primary Care Physician in: 1 Week Please Follow Up With: Jean-Claude Ware MD When: Call thursday for appt Disposition: Home Minutes spent on discharge:: 35 Patient Condition:: Stable Medical Necessity - Tobacco Use Smoking Status: Never smoker Tobacco Use: Non-smoker Meaningful Use Info Meaningful Use Diagnoses (Choose all that apply): None applicable <Jen Max - Last Filed: 02/05/19 14:42> Discharge Date and Diagnosis - Secondary Discharge Diagnosis Chronic Problems (Last Reviewed 02/04/19 @ 15:04 by Jean-Claude Ware MD) Bigeminy (Chronic) Premature ventricular contractions (Chronic) Palpitations (Chronic) Hospital Course and Treatment Summary of Care Provided: Patient seen by Mary Coyle under my supervision The patient is a 53 year old M with past medical history as listed. He was admitted through the ED on 02/21/2019 with a complaint of sudden onset of abdominal pain. He denied any alcohol intake and had no associated nausea vomiting. On admission, lipase was [address] abdomen pelvis showed acute pancreatitis with no evidence of pseudocyst formation and complex cyst versus h emangioma within the right lateral hepatic dome. Patient was admitted and managed for acute pancreatitis. Was initially kept n.p.o. and hydrated with IV fluids. Right upper quadrant ultrasound done showed mildly thickened gallbladder wall with sludge within the gallbladder lumen. Lipase trended down to 1100 at time of discharge. Abdominal pain, nausea vomiting resolved and patient was able to tolerate a full diet. General surgery was consulted but patient did not want to have laparoscopic cholecystectomy in the hospital and opted to have it on outpatient basis. He was discharged on 02/05/2019 and is to follow-up with Dr. Ware on 02/07/2019 to schedule outpatient laparoscopic cholecystectomy. He is to continue full liquid diet until he is evaluated by general surgery. He is follow-up with his primary care doctor within 1 week. Patient seen and examined prior to discharge. He felt well and had no complaints. Review of systems otherwise negative. Labs and vitals reviewed. Home medications reviewed and reconciled. o/e: Vital Signs Height 6 ft 3 in Weight: 211 lb 13.828 oz Weight in Pounds 211.9 lbs Pulse Ox 99 Temperature 97.9 F Pulse Rate 54 Respiratory Rate 18 Blood Pressure 128/70 Blood Pressure Position Semi-Fowlers [] General: Alert, Oriented x3, Cooperative HEENT: Atraumatic, PERRLA, EOMI, Normocephalic Neck: Supple, No JVD, Negative Carotid Bruits Lungs: Clear to auscultation, Normal air movement Cardiovascular: Regular rate, Regular Rhythm, Normal S1, Normal S2, No murmurs Abdomen: Bowel Sounds Present, Soft, Non Tender, Non-Distended Extremities: No clubbing, No cyanosis, No edema, Capillary Refill Less than 3 Seconds Skin: No rashes, No breakdown Musculoskeletal: No Tenderness to Palpation of Joints or Extremities Neurological: Cranial nerves II-XII grossly intact, Neuro grossly intact Psych/Mental Status: Normal Affect, Appropriate Plan as above - Physical Exam Vital Signs Temp Pulse Resp BP Pulse Ox 97.9 F 54 L 18 128/70 H 99 02/05/19 09:39 02/05/19 09:39 02/05/19 09:39 02/05/19 09:39 02/05/19 09:39 Oxygen Delivery Method Room Air Weight: 211 lb 13.828 oz Body Mass Index (BMI) 26.4 Intake and Output for Last 24 Hours 02/03/19 02/04/19 02/05/19 23:59 23:59 23:59 Intake Total 4836.6 / 5036.6 1960 / 1960 Output Total 4150 / 4950 800 / 800 Balance 686.6 / 86.6 1160 / 1160 Laboratory Tests Past 24 Hrs 02/05/19 07:00 Lipase 1104 H Code Visit Inpatient E&M: 96277 Disch Hosp
[2019-02-05 09:39] VITALS: BP 128/70; PULSE 54; RESP 18; TEMP 36.6; O2SAT 99
== END 2019-02-05 09:35 | disposition home or self-care (01) | DRG 440 ==
LOC: ED 03:31 → MS3 03:41
PROVIDERS: Nurse Practitioner Family; Admitting Provider Family Medicine; Emergency Provider Emergency Medicine; Family Provider Family Medicine; PCP Family Medicine; Visit Provider Student in an Organized Health Care Education/Training Program
DX: K85.10 Biliary acute pancreatitis without necrosis or infection (principal); I49.3 Ventricular premature depolarization; J30.9 Allergic rhinitis, unspecified; R00.8 Other abnormalities of heart beat; Z82.49 Family history of ischemic heart disease and other diseases of the circulatory system; Z82.3 Family history of stroke; R25.1 Tremor, unspecified
CPT/HCPCS: 36415; 74176; 76705; 80053; 80061; 81001; 83690; 84478; 85025; 99284; J7030; A4216; J3490

== ENCOUNTER 2019-03-04 07:24 | Day surgery (SDC) | payer OTHER, SELFPAY ==
[2019-02-08 08:13] VITALS: BMI 26.4
--- NOTE | 2019-02-09 01:36 | HP_ITS ---
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 Is patient in pain?: No Allergies No Known Allergies Allergy (Verified 02/08/19 08:12) Medications cetirizine 10 mg tablet 10 mg PO PRN PRN 06/26/17 [History Confirmed 02/08/19] Acetaminophen [Tylenol] 1,000 mg PO Q6H PRN PRN 02/04/19 [History Confirmed 02/08/19] Calcium Carb,Gluc/Mag Ox,Gluc [Calcium Magnesium Caplet] 3 ea PO DAILY 02/04/19 [History Confirmed 02/08/19] DiphenhydrAMINE [Benadryl] 25 mg PO PRN PRN 02/04/19 [History Confirmed 02/08/19] PFSH Medical History Acute pancreatitis (Acute) Bigeminy (Chronic) Premature ventricular contractions (Chronic) Palpitations (Chronic) Pancreatitis (Acute) Surgical History S/P bilateral cataract extraction (Acute) Family History Father CAD (coronary artery disease) CVA (cerebral vascular accident) Mother Hypertension S/P CABG (coronary artery bypass graft) Social History (Updated 02/09/19 @ 13:36 by Jean-Claude Ware MD) Smoking Status: Never smoker HPI HPI HPI: REY WANG, is a 53 M who presents to the office today for HPI HPI Surgical H&P: Yes HPI: REY WANG, is a 53 M who presents to the office today for Follow-up from hospitalization it was [facility] [place]. He presented to the emergency department with abdominal pain and resolved while he was in the emergency department. The pain was sharp in nature located periumbilical he was not having any fevers nausea vomiting diarrhea or urinary symptoms.Laboratory values show that he had an increased lipase of 5186.A gallbladder ultrasound was performed which showed sludge. His hospitalization his pain went away and his lipase returned to normal and he subsequently was discharged home and following up today for definitive surgical treatment ROS General General: No weight change, appetite, fatigue, colon cancer, breast cancer or weakness HEENT HEENT: Yes eye injury and eye surgery; no difficulty swallowing, swollen glands or hoarseness Endo Endocrine: No thyroid disease, diabetes mellitus, thyroid cancer, Hair loss, heat intolerance or cold intolerance Skin Skin: No rash or changing moles Breast Breast: No left breast lump, right breast lump, nipple discharge, breast pain, abnormal mammogram, abnormal US or breast enlargement Musc Musculoskeletal: Yes back problems; no arthritis, rheumatoid arthritis, gout or joint pain Cardio Cardiovascular: No murmur, pacemaker, heart disease, atrial fibrillation, high blood pressure, heart attack, heart stent, palpitations, shortness of breat with exertion or chest pain Psych Psychiatric: No depression, anxiety or hearing voices Resp Respiratory: No shortness of breath, No sleep apnea, No cough, No COPD, No asthma, No emphysema, No wheezing Gastro Gastrointestinal: Yes abdominal pain, No nausea or vomiting, No diarrhea, No constipation, No blood in stool, No acid reflux, No hemorrhoids, No ulcers, Yes gallbladder problem, No black,tarry stools Eric Hematologic: No blood thinners, No blood disorders, No bleeding, No anemia, No blood clots Neuro Neurologic: No system reviewed and no additional complaints, except as docu, No as per HPI, No abnormal walking, No abnormal hearing, No abnormal movements, No abnormal speech, No behavioral changes, No burning sensations, No confusion, No seizure-like activity, No unsteadiness, No dizziness, No localized weakness, No frequent falls, No headache(s), No lack of coordination, No loss of vision, No memory loss, No numbness, No other visual disturbances, No radiating pain, No restless legs, No sensory deficit, No fainting, No tingling, No tremor(s), No weakness, No other Exam Const General: no acute distress, well developed, well hydrated Orientation: oriented to person, oriented to place, oriented to time [facility] Head: normocephalic, atraumatic Ears: external ears normal Mouth: moist mucous membranes Eyes Sclera: sclerae normal Pupils: normal by confrontation Neck Neck: no lymphadenopathy noted Neck mass: No Thyroid: thyroid normal, symmetrical Chest Chest palpation & inspection: normal inspection of the chest Breast Palpation: No nipple discharge Resp Effort & Inspection: normal respiratory effort Auscultation: clear to auscultation bilaterally Percussion: percussion normal Cardio Rate: regular rate Rhythm: regular rhythm Heart Sounds: no murmurs GI Palpation: soft, no hepatosplenomegaly, no masses, nontender Auscultation: normal bowel sounds Rectal Exam: other Other: Rectal exam deferred. Extrem General: normal to inspection, no clubbing, cyanosis or edema Assessment & Plan Problems 1. Biliary acute pancreatitis without necrosis or infection K85.10 Plan My plan is to perform a Robotic assisted laparoscopic cholecystectomy with intraoperative cholangiogram. The planned surgical procedure was discussed extensively with the patient. The risks, benefits, anticipated outcomes and possible complication were mentioned. My staff has also explained the procedure in understandable terms and the patient was given the option to take printed material concerning the planned procedure. The patient had the opportunity to ask questions concerning the planned procedure. The patient freely consents to the planned procedure. Coding Level of Care Code Off vis,est,level 3 Diagnoses Biliary acute pancreatitis without necrosis or infection K85.10 02/09/19 1336 <Electronically signed by Jean-Claude antony MD> Date _ Jean-Claude Ware MD I have re-examined the patient. There are no clinical changes since date of exam.
[2019-03-02 13:58] VITALS: BMI 25.9
[2019-03-02 15:19] LABS: Hematocrit 41.1 % (40-54); Hemoglobin 13.8 g/dL (13.0-16.5); Mean Corp Hgb Conc 33.6 g/dL (32-36); Mean Corpuscular Hgb 30.7 pg (27.0-32.0); Mean Corpuscular Volume 91.3 fL (80-94); Mean Platelet Vol. 11.5 fl (6.2-12.0); Platelet Count 192 K/mm3 (150-450); RBC Distribution Width SD 43.1 fl (35.1-43.9); White Blood Count 6.3 K/mm3 (4.4-11.0)
[2019-03-02 15:43] LABS: Anion Gap 6 (5-15); BUN 18 mg/dL (7-18); BUN/Creat Ratio 17.8 RATIO (10-20); Calcium,Total 8.4 mg/dL (8.5-10.1); Chloride 108 mmol/L (98-107); Creatinine, Serum 1.01 mg/dL (0.70-1.30); EST Glomerular Filtration Rate 81 mL/min (>60); Est Glom Filt Rate - Afr Amer 98 mL/min (>60); Glucose 74 mg/dL (74-106); Potassium 4.1 mmol/L (3.5-5.1); Sodium Level 143 mmol/L (136-145)
[2019-03-04] VITALS (11 sets, daily range): BP systolic 95–124; BP diastolic 61–85; PULSE 55–70; RESP 16; TEMP 36.3–36.9; O2SAT 96–100; BMI 25.6
--- NOTE | 2019-03-04 | GALL_PTH ---
PATIENT: REY WANG LOC: [facility] [place] U#:[id number] AGE/SX: 54/M ROOM: RE03/04/[address]: Dr. Jean-Claude Ware MD : 1965 BED: DIS: 03/04/2019 SPEC #: [id number] RECD: 03/04/19 13:24 STATUS: YONY JOHNATHON #: [id number] CE: 03/04/19 00:[address]: Jean-Claude Ware DEPT: SURGICAL PATHOLOGY RECD BY: Suleiman Kumar ENTERED: 03/04/19 13:24 SP TYPE: CINDI GARCIA DR: Dr. Margie Ramirez MD Tissues: Gallbladder, NOS Procedures: Surgery Specimen Level III HEADER OPERATION: Robotic cholecystectomy PRE-OP DIAGNOSIS: Biliary acute pancreatitis without necrosis or infection TISSUE SUBMITTED: Gallbladder MICROSCOPIC DIAGNOSIS Gallbladder, cholecystectomy: Chronic cholecystitis and cholelithiasis. AM:avinash 03/07/19 MICROSCOPIC DESCRIPTION Slides are reviewed. GROSS DESCRIPTION Received is one container labeled with the patient's name and designated gallbladder. The specimen consists of a gallbladder measuring 9.5 x 4.5 x 3 cm. The external surface is smooth and glistening. Focally, it is granular, hemorrhagic and contains cautery artifact. The lumen of the gallbladder contains yellow-green mucoid bile and multiple black calculi ranging in size from 0.1 to 0.2 cm. The mucosa is bile-stained and without any mass lesions. The gallbladder wall averages 0.2 cm in thickness and is free of mass lesions. Manager Foreign sections of the gallbladder and the cystic duct are submitted in one cassette. / AM:avinash 03/04/19 TC:3 CPT: 67178
[2019-03-04] MEDS: Lactated Ringers 1,000 ML 100 ML IV ×3 (08:17→13:17)
[2019-03-04] MEDS: Cefazolin 2 GM in 0.9% Normal Saline 100 ML IV (09:48)
[2019-03-04] MEDS: BUPIVACAINE LIPOSOME/PF 20 ML VIAL OPERA.SITE (10:45)
--- NOTE | 2019-03-04 10:58 | PCM.OPRPT ---
Problem List (1) Biliary acute pancreatitis without necrosis or infection Status: Acute Report of Operation Date of Procedure: 03/04/19 Pre-Operative Diagnosis: Biliary pancreatitis with cholelithiasis Post-Operative Diagnosis: Same Surgery/Procedure Performed:: Robotic laparoscopic cholecystectomy Type of Anesthesia:: General Anesthesiologist: Brandon Arredondo Specimen's removed: gAll bladder Estimated Blood Loss (mL): < 25 CC Fluids Replaced: 1100 CC LR Description of Procedure: Patient was brought in the operating room. Placed in the supine position. Under excellent general trach intubation. The abdomen was sterilely prepped and draped in usual fashion. Local was injected supraumbilically. Dissection was carried down the fascia. The fascia grasped with a Chasidy. Varies needle was placed inside the abdomen. The abdomen was insufflated to 15 torr. It was flank but 3 other trochars in a longitudinal fashion to 8 to approximately 8 cm away from the 1012 trocar and then further laterally on the right side a #5 trocar all these were placed under direct visualization without injury to underlying structures. Fundus of the gallbladder was grasped with the #5 retractor and placed in the cephalad direction. The robot was then docked in the usual fashion. Grasper was placed in my left hand [place] dissector on the right hand we dissected a fairly significant inflamed gallbladder using a combination of blunt dissection and electrocautery to dissect down so that we identified the cystic duct and the cystic artery. With electrocautery I dissected the artery off of the gallbladder. I placed hemoclips proximally distally and ligated this dissected the cystic duct free placed hemoclips proximally distally and ligated this is a deliver the gallbladder from the gallbladder bed posterior cystic branch traveled significantly all the way up the bed of the liver. There is another branch that was going to the gallbladder which I clipped with hemo-lock clips and transected once I got to the tip of the gallbladder there appeared to be a small apparent duct that I put a clip on his well. I deliver the gallbladder from the rest of the way with electrocautery and placed in a specimen bag and delivered through the umbilical port without difficulty. I inspected the liver edge I had good hemostasis remove the trochars under direct visualization I had good hemostasis fascia the umbilical port was closed with figure stitch of 0 Vicryl skin incisions were closed with some particular stitches of 4-0 Monocryl Steri-Strips were applied sterile dressings were applied and the patient tolerated the procedure well. - Admit VTE Documentation VTE Present on Admission: No VTE Mechan Device Prophylaxis: SCD's VTE Pharm Prophylaxis ordered?: No Reason prophylaxis not ordered:: Treatment Not Indicated
--- NOTE | 2019-03-04 11:00 | PCM.DC.GB ---
Discharge Diet: Light diet - advance as tolerated Discharge Activity: May Not Drive - for 2-3 days or while taking narcotic pain medications., - - Do not drive, work heavy equipment or sign legal documents for 24 hours. May shower in (days): 1 - with the bandage in place. Additional Activity Instructions:: Pain medication may cause nausea. You should typically eat light foods as you take your pain medications. Pain medication may also cause constipation. If this is a problem for you, please discuss with your doctor. Call your doctor if your incision/area has: Continuous Slow Oozing, Sudden Increased Bleeding, Increased Pain/ Swelling, Increased Redness, Foul Smelling Discharge Call your doctor if you observe: Fever of 101 or Higher Suture Line Care: Avoid Pulling/Pushing, Avoid Pinching/Bending Additional Dressing/Incision Instructions:: Leave operative bandaids on for 2 days. When you remove dressing, leave Steri-Strips on until your follow-up appointment, or until the Steri-Strips fall off on their own. Allergies/Adverse Reactions: Allergies No Known Allergies Allergy (Verified 03/04/19 08:07) Medications to take at Discharge cetirizine 10 mg tablet 10 mg PO PRN PRN 06/26/17 Acetaminophen [Tylenol] 1,000 mg PO Q6H PRN PRN 02/04/19 Calcium Carb,Gluc/Mag Ox,Gluc [Calcium Magnesium Caplet] 3 ea PO DAILY 02/04/19 DiphenhydrAMINE [Benadryl] 25 mg PO PRN PRN 02/04/19 Ranitidine HCl [Zantac] 150 mg PO PRN PRN 02/25/19 Oxycodone HCl/Acetaminophen [Percocet 5/325] 1 - 2 tab PO Q4H PRN PRN 6 Days #30 tab 03/04/19 The following prescriptions were given: Oxycodone HCl/Acetaminophen [Percocet 5/325] 1 - 2 tab PO Q4H PRN PRN 6 Days #30 tab PRN Reason: Pain Prescription Printed Orders to be completed after discharge: 12 Lead EKG [CVS] Time Frame: 02/25/19, Facility: [facility], Location: Cardiovascular Services Basic Metabolic Profile (BMP) Time Frame: 02/25/19, Facility: [facility], Location: Laboratory CBC-Complete Blood Cnt No Diff Time Frame: 02/25/19, Facility: [facility], Location: Laboratory Primary Care Physician: Margie Ramirez MD [Primary Care Provider] - Test Results: Test results from this visit will be discussed in further detail at your follow-up appointment, if applicable. Please Follow Up With: Jean-Claude Ware MD - Please call [phone] to schedule an appointment. When: 7 days after your surgery.
== END 2019-03-04 15:22 | disposition home or self-care (01) ==
LOC: SDC 07:26 → AC 07:26
PROVIDERS: Family Provider Family Medicine; PCP Family Medicine; Referring Provider Surgery; Visit Provider Surgery
PROC: 0FT44ZZ Resection of Gallbladder, Percutaneous Endoscopic Approach (ICD-10-PCS; CPT 47562; principal; 2019-03-04 09:15)
DX: K80.10 Calculus of gallbladder with chronic cholecystitis without obstruction (principal); K21.9 Gastro-esophageal reflux disease without esophagitis; Z79.899 Other long term (current) drug therapy
CPT/HCPCS: 47562; 36415; 80048; 85027; 88304; J7120; J2405

== ENCOUNTER → 2019-08-03 | Outpatient (CLI) | payer OTHER, SELFPAY ==
[2019-03-04 08:08] VITALS: BMI 25.6
--- NOTE | 2019-08-03 07:58 | ECHOD_ITS ---
Reason For Study: Arrhythmia Procedure This was a 2D Doppler, Color Flow transthoracic echocardiogram. The exam was of adequate technical quality. Exam performed in department. Left Ventricle Normal LV size. Left ventricular systolic function is normal. The estimated ejection fraction is 55 %. No evidence for diastolic dysfunction. No regional wall motion abnormalities noted. Right Ventricle Normal RV size. Normal systolic function. Atria Normal left atrium. Normal right atrium. No doppler evidence for ASD. Mitral Valve There is no mitral annular calcification. Mild diffuse mitral valve thickening. Equivocal mitral valve prolapse. Trivial mitral valve insufficiency. Tricuspid Valve Normal tricuspid valve. Trivial tricuspid valve insufficiency. Aortic Valve Trisinus/trileaflet aortic valve. Mild diffuse aortic valve thickening. Mild focal aortic valve calcification. Pulmonic Valve The pulmonic valve is not well visualized. Trivial pulmonic valve insufficiency. Great Vessels Normal sized aortic root. Pericardium/Pleural No pericardial effusion. MMode/2D Measurements & Calculations LVIDd: 5.5 cm IVSd: 0.75 cm Ao root diam: 3.3 cm LVIDs: 3.7 cm LVPWd: 0.83 cm RVDd: 3.6 cm FS: 33.0 % LAV(MOD-bp): 43.3 ml LVAd ap4: 36.7 cm2 SV(MOD-sp4): 61.2 ml LAV(MOD-bp) Indexed: 19.7 ml/m2 EDV(MOD-sp4): 113.7 ml LAV(MOD-sp2): 50.0 ml EDV(sp4-el): 118.4 ml LAV(MOD-sp4): 35.2 ml LVAs ap4: 22.9 cm2 ESV(MOD-sp4): 52.5 ml ESV(sp4-el): 51.6 ml EF(MOD-sp4): 53.8 % EF(sp4-el): 56.4 % SV(sp4-el): 66.7 ml LA A4 area: 15.2 cm2 LA dimension(2D): 3.1 cm RA A4 area: 17.4 cm2 Doppler Measurements & Calculations MV E max mike: 87.9 cm/sec Lat Peak E' Mike: 8.3 cm/sec Med Peak E' Mike: 10.3 cm/sec MV A max mike: 64.8 cm/sec E/E' lat: 10.5 E/E' med: 8.5 MV E/A: 1.4 Ao V2 max: 178.4 cm/sec LV V1 max: 114.2 cm/sec PA V2 max: 168.3 cm/sec Ao max P.7 mmHg LV V1 max P.2 mmHg Interpretation Summary Left ventricular systolic function is normal. The estimated ejection fraction is 55 %. Mild diffuse mitral valve thickening. Equivocal mitral valve prolapse. Trivial mitral valve insufficiency. Trivial tricuspid valve insufficiency. Mild diffuse aortic valve thickening. Mild focal aortic valve calcification. Trivial pulmonic valve insufficiency. No evidence for diastolic dysfunction. Ordering Physician: Rodney Maciel Referring Physician: Margie Ramirez M.D. Performed By: Paris Tuttle RDCS
== END | disposition home or self-care (01) ==
PROVIDERS: PCP Family Medicine; Referring Provider Internal Medicine Cardiovascular Disease; Visit Provider Internal Medicine Cardiovascular Disease
DX: I49.3 Ventricular premature depolarization (principal); I49.9 Cardiac arrhythmia, unspecified
CPT/HCPCS: 93306

== ENCOUNTER 2020-08-10 09:29 | Outpatient (RCR) | payer OTHER, SELFPAY ==
[2019-08-31 08:43] VITALS: BMI 25.6
[2020-08-10] MEDS: COVID-19 VACC, MRNA(PFIZER)/PF 30 MCG/0.3 ML SYRINGE IM (07:06)
[2020-08-31] MEDS: COVID-19 VACC, MRNA(PFIZER)/PF 30 MCG/0.3 ML SYRINGE IM (06:57)
== END 2020-08-10 23:59 ==
LOC: IMMUN 09:29
PROVIDERS: PCP Family Medicine; Visit Provider Family Medicine
DX: Z23 Encounter for immunization (principal)
CPT/HCPCS: 0001A; 0002A; 91300

== ENCOUNTER → 2021-09-19 | Outpatient (CLI) | payer OTHER, SELFPAY ==
--- NOTE | 2021-09-19 09:05 | ECHOD_ITS ---
Reason For Study: MVP Procedure This was a 2D Doppler, Color Flow transthoracic echocardiogram. The study was technically difficult. Exam performed in department. Left Ventricle Normal LV size. Left ventricular systolic function is normal. The estimated ejection fraction is 55 %. No evidence for diastolic dysfunction. No regional wall motion abnormalities noted. Right Ventricle Normal RV size. Normal systolic function. Atria Normal left atrium. Normal right atrium. No doppler evidence for ASD. Mitral Valve There is no mitral annular calcification. Anterior leaflet diffuse mitral valve thickening. Mild mitral valve prolapse. Trivial mitral valve insufficiency. Tricuspid Valve Normal tricuspid valve. Trivial tricuspid valve insufficiency. Unable to estimate RV systolic pressure/pulmonary artery pressure due to technically difficult study. Aortic Valve Trisinus/trileaflet aortic valve. Mild focal aortic valve calcification. Trivial aortic valve insufficiency. Pulmonic Valve The pulmonic valve is not well visualized. Trivial pulmonic valve insufficiency. Great Vessels Normal sized aortic root. Pericardium/Pleural No pericardial effusion. MMode/2D Measurements & Calculations LVIDd: 4.6 cm IVSd: 1.1 cm Ao root diam: 3.3 cm LVIDs: 2.7 cm LVPWd: 0.93 cm RVDd: 3.4 cm FS: 41.3 % LAV(MOD-bp): 50.4 ml LVAd ap4: 34.3 cm2 LVAd ap2: 30.6 cm2 LAV(MOD-bp) Indexed: 22.8 ml/m2 LVLd ap4: 9.3 cm LVLd ap2: 9.4 cm LAV(MOD-sp2): 51.5 ml EDV(MOD-sp4): 107.3 ml EDV(MOD-sp2): 86.6 ml LAV(MOD-sp4): 49.6 ml EDV(sp4-el): 106.7 ml EDV(sp2-el): 84.7 ml LVAs ap4: 19.6 cm2 LVAs ap2: 18.4 cm2 LVLs ap4: 7.0 cm LVLs ap2: 7.8 cm ESV(MOD-sp4): 44.6 ml ESV(MOD-sp2): 37.5 ml ESV(sp4-el): 46.2 ml ESV(sp2-el): 36.6 ml EF(MOD-sp4): 58.4 % EF(MOD-sp2): 56.6 % EF(sp4-el): 56.7 % SV(MOD-sp4): 62.6 ml SV(MOD-sp2): 49.0 ml SV(sp4-el): 60.4 ml LA dimension(2D): 3.0 cm LA A4 area: 19.1 cm2 RA A4 area: 12.6 cm2 Doppler Measurements & Calculations MV E max mike: 80.9 cm/sec Lat Peak E' Mike: 10.4 cm/sec Med Peak E' Mike: 10.6 cm/sec MV A max mike: 85.3 cm/sec E/E' lat: 7.8 E/E' med: 7.6 MV E/A: 0.95 Ao V2 max: 110.6 cm/sec AI max mike: 431.8 cm/sec LV V1 max: 96.9 cm/sec Ao max P.9 mmHg AI max P.7 mmHg LV V1 max P.8 mmHg AI dec slope: 152.4 cm/sec2 AI P1/2t: 829.8 msec PA V2 max: 178.0 cm/sec ECHO/Echo Complete Interpretation Summary The study was technically difficult. Left ventricular systolic function is normal. The estimated ejection fraction is 55 %. Anterior leaflet diffuse mitral valve thickening. Mild mitral valve prolapse. Trivial mitral valve insufficiency. Trivial tricuspid valve insufficiency. Mild focal aortic valve calcification. Trivial aortic valve insufficiency. Trivial pulmonic valve insufficiency. Unable to estimate RV systolic pressure/pulmonary artery pressure due to techni lewis difficult study. No evidence for diastolic dysfunction. Ordering Physician: Rodney Maciel Referring Physician: Margie Ramirez M.D. Performed By: Shae De La Rosa RCS
== END | disposition home or self-care (01) ==
LOC: PSN 08:59
PROVIDERS: PCP Family Medicine; Visit Provider Internal Medicine Cardiovascular Disease
DX: I34.1 Nonrheumatic mitral (valve) prolapse (principal); I49.3 Ventricular premature depolarization; R00.2 Palpitations
CPT/HCPCS: 93225; 93226; 93306

== ENCOUNTER 2025-02-06 18:52 | Emergency (ER) | payer OTHER, SELFPAY ==
[2025-02-06 18:53] VITALS: BP 160/89; PULSE 80; RESP 16; TEMP 36.2; O2SAT 99; BMI 27.7
--- NOTE | 2025-02-06 20:55 | EDS_ITS ---
HPI History of Present Illness Chief Complaint: Laceration Narrative Narrative: Patient is a 59-year-old male presenting to the emergency department for a finger injury. Patient has a past medical history as below, no significant history to this complaint. Patient is unsure when his last tetanus shot was but states it was more than 10 years ago. States that he was working when he cut his left index finger on a piece of clean metal. Denies any other injuries. Denies any numbness or weakness in his hand. PFSH PFSH Medical History Irregular heart beat Nonrheumatic mitral (valve) prolapse Biliary acute pancreatitis without necrosis or infection Acute pancreatitis Pancreatitis Bigeminy Premature ventricular contractions Palpitations Home Medications ?Medication ?Instructions ?Recorded ?Last Taken ?Type cetirizine 10 mg tablet (Zyrtec) 10 mg PO PRN PRN MALIKA RGIES 06/26/17 01/28/19 06:30 History acetaminophen 500 mg tablet 1,000 mg PO Q6H PRN PRN Pa in 02/04/19 01/26/19 06:30 History diphenhydramine HCl 25 mg capsule 25 mg PO PRN PRN all ergies 02/04/19 01/14/19 06:30 History Allergy/AdvReac Type Severity Reaction Status Date / Time No Known Allergies Allergy Verified 02/06/25 18:52 Family History Father CAD (coronary artery disease) CVA (cerebral vascular accident) Mother Hypertension S/P CABG (coronary artery bypass graft) Surgical History Hx of cholecystectomy S/P bilateral cataract extraction Social History Smoking Status: Never smoker ROS ROS ED ROS Narrative See HPI EXAM Physical Exam Narrative Exam Narrative: Vital signs: Reviewed General: Alert and oriented x 3. No acute distress HEENT: Head is normocephalic and atraumatic, sinuses nontender, pupils equal round and reactive. Nares are patent. Oropharynx and throat exams normal. Neck: Supple without lymphadenopathy nontender Cardiovascular: Regular rate and rhythm, no murmurs. No rubs or gallops. Normal S1 and S2 Respiratory: Clear to auscultation bilaterally. No wheezes, rales, rhonchi Abdominal: Soft and nontender. Normal bowel sounds. No guarding or rebound. Nonsurgical abdomen Extremities: No tenderness. No bruising. Normal range of motion. Normal sensation. Skin: 2 cm laceration to the dorsal aspect of the left index finger along the proximal phalanx. There is no foreign body seen. It is superficial there is no tendon involvement. Patient able to flex and extend at all joints without difficulty. Radial pulse intact. Sensation and motor intact in median, radial and ulnar distributions. The rest of the physical exam is unremarkable Const Vital Signs: 02/06/25 18:53 Temperature 97.2 F L Temperature Source Temporal Pulse Rate 80 Respiratory Rate 16 Blood Pressure 160/89 H Blood Pressure Mean 112 Pulse Ox 99 Oxygen Delivery Method Room Air MDM MDM MDM Narrative Medical decision making narrative: Patient is a 59-year-old male presenting to the emergency department for a finger laceration. Patient was seen and examined. Vitals are stable. Patient resting bed comfortably no acute distress. Laceration is very superficial, there is no foreign body and no tenderness I do not have concern for underlying bony injury. There is no tendon involvement on exploration of the wound. Patient's tetanus was updated. Lidocaine was injected locally for anesthetic. Laceration was repaired with 3 4-0 nonabsorbable sutures. Patient was instructed to have these removed in 7 to 10 days. He was given wound care instructions including watching for redness, drainage or warmth of the area and returning if this develops. All questions answered. Patient discharged from the Emergency Department. I do not feel that the patient's evaluation reveals any acute reason for admission at this time. I instructed them to either follow-up with their primary care physician or promptly return to the Emergency Department for reevaluation should symptoms worsen or new symptoms develop. I explained what symptoms would indicate the need to return to the emergency department. Shared decision making was used. The patient voiced understanding of the treatment plan and is agreeable with it. Clinical impression Finger laceration History & Record Review Discussion w/independent historian: Patient Discharge Plan Triage Chief Complaint: Laceration ED Provider: Flori Neely Dx/Rx/DC Orders Clinical Impression: Laceration of finger Instructions: ED Laceration Extremity Prescriptions: No Action cetirizine [Zyrtec] 10 mg tablet 10 mg PO PRN PRN (Reason: ALLERGIES) acetaminophen 500 MG tablet 1,000 mg PO Q6H PRN PRN (Reason: Pain) diphenhydramine HCl 25 MG capsule 25 mg PO PRN PRN (Reason: allergies) Primary Care Provider: Mariela Forrest Referrals: Mariela Forrest, [employer] [employer] [Primary Care Provider] - 1 Week Activity Restrictions/Additional Instructions: You need to have the sutures removed in 7 to 10 days. Watch the site for signs of infection including redness, drainage or warmth. Return to the ED i mmediately with any new symptoms. Keep the wound clean and dry. Your evaluation in the Emergency Department did not reveal any acute reason for admission. However, I want to emphasize that you may be early in the course of a disease process or illness even if it is not present. For this reason you should follow-up within 24 hours for reevaluation with either your primary care physician or if necessary back here in the Emergency Department. You should return to the Emergency Department immediately if your symptoms worsen or new symptoms develop. Print Language: Mohawk Disposition Disposition: Home, Self Care
[2025-02-06] MEDS: Lidocaine 2% (20 ml mdv) 20 ML Vial 10 ML INFILT (21:09)
[2025-02-06 21:27] VITALS: BP 160/93; PULSE 71; RESP 16; TEMP 36.9; O2SAT 98
== END 2025-02-06 21:32 | disposition home or self-care (01) ==
PROVIDERS: Emergency Provider Student in an Organized Health Care Education/Training Program; PCP Nurse Practitioner Family; Visit Provider Student in an Organized Health Care Education/Training Program
DX: S61.211A Laceration without foreign body of left index finger without damage to nail, initial encounter (principal); W26.8XXA Contact with other sharp object(s), not elsewhere classified, initial encounter; Z23 Encounter for immunization
CPT/HCPCS: 12001; 90471; 90715; 96372; 99282